=== PATIENT | female | born 1940 | race Caucasian/White ===

== ENCOUNTER → 2016-02-16 | Outpatient (CLI) | payer OTHER, MEDICARE ==
--- NOTE | 2016-02-16 17:20 | DX ---
Cervical spine, 2 views History: M47.12, spondylosis, M48.02 spinal stenosis, M47.812, spondylosis. Surgery. Findings: Anterior cervical fusion plate and screws at the C4, C6 and C7 levels with corpectomy of C 5. Posterior transpedicle screws and rods from every level from C3 through C7. Hardware appears intac t. C3-C4 level demonstrates 2 mm anterolisthesis. Impression: 1. Anterior fusion from C4 through C7 and posterior fusion from C3 through C7 with hardware intact. 2. C3-C4 anterolisthesis 2 mm.
== END ==
LOC: FIMAGING 14:11
PROVIDERS: ATTEND Physician Assistant
DX: M43.12 Spondylolisthesis, cervical region (principal); Z98.1 Arthrodesis status

== ENCOUNTER 2016-02-18 05:51 | Inpatient (IN) | payer OTHER, MEDICARE ==
[2016-02-18] MEDS ORDERED: CHLORHEXIDINE GLUC HIBICLENS 118 ML BTL TP ONE (06:30)
[2016-02-18] MEDS ORDERED: morphINE SR 15 MG TAB PO ONE (06:30)
[2016-02-18] MEDS ORDERED: THROMBIN (RECOMBINANT) 5,000 UNIT VIAL TP ONE (06:38)
[2016-02-18] MEDS ORDERED: BUPIVACAINE 0.25% 30 ML SDV ONE (06:38)
[2016-02-18] MEDS ORDERED: AVITENE POWDER 1 GM JAR TP ONE (06:38)
[2016-02-18] MEDS ORDERED: BACITRACIN 50,000 UNITS/10 ML SYR IRR ONE (06:39)
[2016-02-18] MEDS ORDERED: BUPIVACAINE/EPI 0.25% 30 ML SDV ONE (06:39)
[2016-02-18] MEDS ORDERED: LIDOCAINE 1% 5 ML SDV ONE (06:43)
[2016-02-18] MEDS ORDERED: ceFAZolin 2 GM/DEXTROSE 100 ML IV ONE (07:00)
[2016-02-18 07:13] LABS: % IMMATURE GRANULYOCYTES 0.3 % (0.0-1.1); ABSOLUTE IMMATURE GRANULOCYTES 0.02 10^3/uL (0.00-0.10); ADD DIFF? NO; ADD MORPH? NO; ADD SCAN? NO; ATYPICAL LYMPHOCYTE FLAG 10 (0-99); FRAGMENT RBC FLAG 0 (0-99); HEMATOCRIT 38.5 % (38.0-47.0); HEMOGLOBIN 13.3 g/dL (12.6-16.3); LEFT SHIFT FLG 0 (0-99); LIPEMIA HEMOLYSIS FLAG 90 (0-99); MEAN CELL HEMOGLOBIN 34.7 pg (27.9-34.1); MEAN CELL HEMOGLOBIN CONCENTR. 34.5 g/dL (32.4-36.7); MEAN CELL VOLUME 100.5 fL (81.5-99.8); MEAN PLATELET VOLUME 8.9 fL (8.7-11.7); PLATELET CLUMPS FLAG 0 (0-99); PLATELET COUNT 249 10^3/uL (150-400); RED BLOOD CELL COUNT 3.83 10^6/uL (4.18-5.33); RED CELL DISTRIBUTION WIDTH 12.2 % (11.5-15.2)
[2016-02-18] MEDS ORDERED: fentaNYL 100 MCG/2 ML INJ ONE (07:15)
[2016-02-18] MEDS ORDERED: REMIFENTANIL HCL 1 MG VIAL ONE (07:15)
[2016-02-18] MEDS ORDERED: PROPOFOL/EMULSION 500 MG/50 ML BOTTLE IV ONE (07:16)
[2016-02-18] MEDS ORDERED: SUCCINYLCHOLINE CHLORIDE*ANESTHESIA ONLY*200 MG/10 ML SYR IVP ONE (07:19)
[2016-02-18] MEDS ORDERED: LIDOCAINE 2% 100 MG/5 ML SYR IVP ONE (07:20)
[2016-02-18] MEDS ORDERED: LR 1,000 ML IV ONE (07:22)
[2016-02-18] MEDS ORDERED: LIDOCAINE 1% 5 ML SDV ID PRN (07:22)
[2016-02-18] MEDS ORDERED: METOCLOPRAMIDE 10 MG/2 ML VIAL IVP PRN (09:46)
[2016-02-18] MEDS ORDERED: ACETAMINOPHEN 325 MG TAB PO PRN (09:46)
[2016-02-18] MEDS ORDERED: PROMETHAZINE HCL 25 MG TAB PO PRN (09:46)
[2016-02-18] MEDS ORDERED: ONDANSETRON DISINTEGRATING 4 MG TAB PO PRN (09:46)
[2016-02-18] MEDS ORDERED: ONDANSETRON 4 MG/2 ML VIAL IVP PRN (09:46)
[2016-02-18] MEDS ORDERED: NON-FORMULARY NEW DRUG (Omeprazole [Prilosec 20 Mg] 20 MG) PO PRN (09:57)
[2016-02-18] MEDS ORDERED: BACLOFEN 10 MG TAB PO PRN (09:57)
[2016-02-18] MEDS ORDERED: NS W/ 20 KCl/L 1,000 ML IV SCH (10:00)
[2016-02-18] MEDS ORDERED: PANTOPRAZOLE SODIUM 40 MG TAB PO PRN (10:15)
--- NOTE | 2016-02-18 10:19 | NEUSURGPN ---
Assessment/Plan: 75 yo female planned for C1/2,2/3 PSF. Aborted due to O-arm technical failure. -Rescheduled for tomorrow morning -NPO after midnight-can have regular diet now -Home meds reconciled -Activity as tolerated -Patient seen in PACU by Dr. Menjivar as well Subjective: Patient doing ok, no complaints currently. No nausea, vomiting, pain. Objective: NAD, VSS Following commands, conversing appropriately PERRL, EOMI CN II-XII grossly intact BUE/BLE 06/17= - Physician Discussed Patient with : Otto Patient Seen by : Otto Neurosurgery Physical Exam - Vitals, I&O, Labs I and O 02/17/16 02/18/16 02/19/16 05:59 05:59 05:59 Weight 57.153 kg Laboratory Results 02/18/16 07:10 ICD10 Worksheet Patient Problems: Problems Problem Status Diagnosed Cervical stenosis of spinal canal Acute - ICD10 Problem Qualifiers (1) Cervical stenosis of spinal canal
[2016-02-18] MEDS: PARoxetine HCL 10 MG TAB PO SCH (11:30)
[2016-02-18] MEDS: DONEPEZIL HCL 5 MG TAB PO SCH (11:30)
--- NOTE | 2016-02-18 13:18 | GOP ---
[f rep st] OPERATIVE REPORT DATE OF OPERATION: 02/18/2016 SURGEON: Hai Menjivar MD NEUROSURGEON: Hai Menjivar MD DRY ICE MAKER: CATALINA Suggs PREOPERATIVE DIAGNOSIS: Cervical spondylosis with severe cervical stenosis, C1-2 instability, neck p ain. POSTOPERATIVE DIAGNOSIS: Cervical spondylosis with severe cervical stenosis, C1-2 instability, neck pain. PROCEDURE PERFORMED: Posterior cervical decompression and fusion, C1 to C3 but really going down to C7. FINDINGS: ESTIMATED BLOOD LOSS: None. DESCRIPTION OF PROCEDURE: Procedure was aborted due to simultaneous failure of both O-arm 2.0 and O- arm 1.0. We had tech support on the phone for over an hour trying to resolve the issue, and we simpl y could not achieve this. The patient had been placed in cranial pins and flipped prone on the Jacks on table. Motor and somatosensory evoked potentials were tested, and these were stable, but the surg malia was never fully initiated. She had been positioned, but the skin was not incised, and she was ne sriram draped for surgery. Procedure aborted due to equipment failure. The patient was reversed from a nesthesia, transferred back to the recovery room, and the surgery was rescheduled. /[id number]/MODL
[2016-02-18] MEDS: Memantine Hcl [Namenda Xr] 28 MG PO SCH (14:06)
[2016-02-18] MEDS ORDERED: DIVALPROEX NA 125 MG TAB PO PRN (17:00)
[2016-02-18] MEDS: LISINOPRIL 20 MG TAB PO SCH (18:51)
[2016-02-18] MEDS: HYDROCODONE/APAP 5/325 TAB PO PRN (21:43)
[2016-02-19] MEDS: HYDROCODONE/APAP 5/325 TAB PO PRN (04:42)
[2016-02-19] MEDS ORDERED: LR 1,000 ML IV ONE (06:38)
[2016-02-19] MEDS ORDERED: THROMBIN (RECOMBINANT) 5,000 UNIT VIAL TP ONE (06:46)
[2016-02-19] MEDS ORDERED: THROMBIN (RECOMBINANT) 20,000 UNIT VIAL TP ONE (06:46)
[2016-02-19] MEDS ORDERED: BUPIVACAINE 0.25% 30 ML SDV ONE (06:46)
[2016-02-19] MEDS ORDERED: BUPIVACAINE/EPI 0.25% 30 ML SDV ONE ×2 (06:47→07:26)
[2016-02-19] MEDS ORDERED: AVITENE POWDER 1 GM JAR TP ONE (06:47)
[2016-02-19] MEDS ORDERED: BACITRACIN 50,000 UNITS/10 ML SYR IRR ONE (06:49)
[2016-02-19] MEDS ORDERED: ceFAZolin 2 GM/DEXTROSE 100 ML IV ONE (06:50)
[2016-02-19] MEDS ORDERED: fentaNYL 100 MCG/2 ML INJ ONE ×3 (07:19→13:03)
[2016-02-19] MEDS ORDERED: PROPOFOL 200 MG/20 ML VIAL ONE (07:19)
[2016-02-19] MEDS ORDERED: REMIFENTANIL HCL 1 MG VIAL ONE (07:19)
[2016-02-19] MEDS ORDERED: PROPOFOL/EMULSION 500 MG/50 ML BOTTLE IV ONE ×2 (07:20→10:15)
[2016-02-19] MEDS ORDERED: DIAZEPAM 10 MG/2 ML SYR IVP PRN (07:22)
[2016-02-19] MEDS ORDERED: MAGNESIUM HYDROXIDE 30 ML UDCUP PO PRN (07:22)
[2016-02-19] MEDS ORDERED: LACTULOSE 20 GM/30 ML UDCUP PO PRN (07:22)
[2016-02-19] MEDS ORDERED: BISACODYL 10 MG SUPP PR PRN (07:22)
[2016-02-19] MEDS ORDERED: POLYETHYLENE GLYCOL 3350 17 GM PKT PO PRN (07:22)
[2016-02-19] MEDS ORDERED: diphenhydrAMINE 25 MG CAP PO PRN (07:22)
[2016-02-19] MEDS ORDERED: morphINE PCA 30 MG/30 ML PCA IV PRN (07:22)
[2016-02-19] MEDS ORDERED: NALOXONE HCL 0.4 MG/ML INJ IVP PRN (07:22)
[2016-02-19] MEDS ORDERED: TEMAZEPAM 15 MG CAP PO PRN (07:22)
[2016-02-19] MEDS ORDERED: [UNRECOGNIZED DRUG - SUPPLY] TP ONE (07:30)
[2016-02-19] MEDS ORDERED: DEXAMETHASONE 4 MG/ML VIAL ONE ×2 (08:17)
[2016-02-19] MEDS ORDERED: LIDOCAINE 2% 5 ML SDV ONE (08:17)
[2016-02-19] MEDS ORDERED: ROCURONIUM 50 MG/5 ML VIAL ONE (08:17)
[2016-02-19] MEDS ORDERED: PHENYLEPHRINE HCL 100 MCG/ML SYR ONE (09:45)
[2016-02-19] MEDS ORDERED: HYDROmorphONE/DILAUDID 2 MG/ML SYR ONE (10:11)
[2016-02-19] MEDS ORDERED: ONDANSETRON 4 MG/2 ML VIAL ONE (12:10)
--- NOTE | 2016-02-19 13:22 | SOAPPROG ---
SOAP Progress Note Assessment/Plan: Post Op Visit: S: Awake and alert. NAD. Pt with expected neck pain O: AFVSS/PERRLA/EOMI no droop CN 2-12 grossly intact +lt touch 5/5 BUE/BLE = CDI NICKO in place A/P: 75 yo female that is s/p removal of cervical hardware with new posterior cervical fusion C1-C5 -collar at all times -take medications as directed -pt seen by Dr Menjivar as well 02/19/16 13:18 Objective: Vital Signs Temp Pulse Resp BP Pulse Ox 36.8 C 78 16 140/81 H 96 02/19/16 05:07 02/19/16 05:07 02/19/16 05:07 02/19/16 05:07 02/19/16 05:07 Laboratory Results 02/18/16 07:10 02/18/16 02/19/16 02/20/16 05:59 05:59 05:59 Intake Total 1687 Output Total 1375 Balance 312 ICD10 Worksheet Patient Problems: Problems Problem Status Diagnosed Arthrodesis status Acute Cervical stenosis of spinal canal Acute Cervicalgia Acute - ICD10 Problem Qualifiers (1) Arthrodesis status (2) Cervicalgia
--- NOTE | 2016-02-19 15:02 | GOP ---
[f rep st] OPERATIVE REPORT DATE OF OPERATION: 02/19/2016 SURGEON: Hai Menjivar MD MEAT SUPERVISOR: Kali Garcia PA-C PREOPERATIVE DIAGNOSIS: 1. 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 2. Severe axial neck pain and radiating head pain. 3. Cervical stenosis C1-C2. 4. Prior cervical fusion C3-C7. POSTOPERATIVE DIAGNOSIS: 1. 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 2. Severe axial neck pain and radiating head pain. 3. Cervical stenosis C1-C2. 4. Prior cervical fusion C3-C7. PROCEDURE PERFORMED: Removal of posterior cervical segmental hardware C3, C4, C5, C7, posterior C1-C 2 arthrodesis with fusion of C1 to C2 and fusion the C1-C2 joint, posterior segmental instrumentation C1, C2, C4, C5, spinal stereotaxy, same-incision bone graft harvest, C1-C2 laminectomy without facet ectomy. FINDINGS: ESTIMATED BLOOD LOSS: 250 cc. DESCRIPTION OF PROCEDURE: The patient was taken to the operating room, placed in supine position. G eneral anesthesia was begun. She was placed in pins and flipped prone onto the Jose table. Care was taken to pad all points of contact. The back of her neck was sterilely prepped and draped in usu al fashion. The O arm was introduced sterilely to the field. We opened the previous incision and di ssected down to the spine and the occipital bone with the plasma blade. We exposed the prior hardwar e from C3 to C7. There was significant bony overgrowth and this was removed. We removed all the cap screws, then removed the crosslink, cut the rods on each side with a carbide bit in the mid portion of the construct, and pulled out all 4 rods. We then removed all of the screws bilaterally and expl ored the fusion. There did appear to be solid bony union. We decorticated the posterolateral bone f or arthrodesis at C3, C4, C5, C6 and C7 to create a stronger fusion construct that would tie into C1. There was a solid, bony union. There was also bony union between C2 and C3. We then harvested the rostral lamina of C2 and the lamina of C1 for autologous grafting purposes, decompressed the thecal sac, and performed a laminectomy of C1 and C2. I got a nice decompression at those levels. We follo wed the dura out laterally along the C2 root and we dissected around the C2 root. There was a large synovial cyst on each side coming out of the C1-C2 joint compressing the C2 root, and this was resect ed. We then tied off the C2 root proximal to the ganglion bilaterally, left and right, and then divi ded the C2 root so that we could see the lateral mass portion of the C1 ring. We then attached the [facility] reference frame to C7 and then performed an O arm spin, and using frameless Stealth stereotaxy , we placed pedicle screws bilaterally at C1 into the C1 lateral masses. They were bicortical and we went millimeter and millimeter, drilling 2.4 mm holes with the drill guide and drill bit. These scr ews were directed medially and we drilled to the ventral cortex of C1 which was a 30 mm screw on the left and a 32 mm on the right. We then did likewise at C2, where we drilled down through the C2 pedi peyton, and on the left side we chose a 30 mm screw and on the right a 20 mm screw. We had less room to spare on the right relative to the vertebral artery, and we used a much shorter screw, but the C2 pe dicle was solid cortical bone and it took a long time actually to drill through it. We then went bel ow and skipped the C3 level, and put lateral mass screws at C4 and C5 in the same holes that had been used previously. We performed an O arm spin and all the screws were in acceptable position and the C1 screws both bicortical. We decorticated the C1-C2 facet joint itself, working below the foramen, and we decorticated the remaining ring of C1 laterally, staying below the ring of C1, away from the v ertebral artery. A nice decortication was performed. We took 60 mm rods, placed them down over the screws, and reduced C1 onto the rods, pulling it posteriorly into a better position. This also relax ed the dura and motor and somatosensory-evoked potentials were stable throughout. We placed cap scre ws down over the tulips and connected the yessenia into the tulips and torqued these to Archetypes specificInfo ion. We then placed bony autograft posterolaterally bilaterally from C1 all the way down to C5 to co nclude our arthrodesis along these levels, placed a subfascial drain, and then closed the incision in multiple layers using Vicryl sutures. The very rostral portion incision was closed with a running P rolene suture, as it behaved more like scalp rather than skin on the back. We were happy with this. We placed a sterile dressing, put the patient in a collar, put her back on a hospital bed, and then removed the [facility] head frame. COMPLICATIONS: None. INSTRUMENTATION: [employer] Vertex instrumentation. We used small bone morphogenic protein and we us ed autologous bone graft. INDICATIONS FOR THE PROCEDURE: The patient is a 75-year-old with a prior cervical fusion, anteriorly -posteriorly from C3 to C7 who appeared to have bony union on her studies, who came in with terrible increasing neck pain that was incapacitating pain. She also suffered from dementia and it was becomi ng more difficult because of her dementia for her to remain independent. 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 The risk of vertebral artery injury, , hematoma, screw and hardware malposition, malfunction, ne rve injury, spinal fluid leak, continued symptoms, continued pain, pseudoarthrosis, and the possible need for additional surgery, was discussed. She and her accepted these risks and wanted to p martir. /[id number]/MODL
--- NOTE | 2016-02-19 15:12 | DX ---
Fluoroscopy Greater Than an Hour Indication: Multilevel fusion. Fluoroscopy Time: 3.5 seconds. Dose 2.15 mGy. Two 3D images were obtained for a DLP of 397.1. Findings: On the two spot fluoroscopic images, there is fusion from C1 through C5 in an intubated pa tient. Impression: Fluoroscopy provided for posterior cervical fusion and hardware. Please see Dr. Menjivar's report for full surgical detail.
[2016-02-19] MEDS: HYDROCODONE/APAP 10/325 TAB PO PRN ×2 (15:18→20:13)
[2016-02-19] MEDS: DONEPEZIL HCL 5 MG TAB PO SCH (15:18)
[2016-02-19] MEDS: ESTROGENS CONJUGATED 0.9 MG PO SCH (15:18)
[2016-02-19] MEDS: Memantine Hcl [Namenda Xr] 28 MG PO SCH (15:19)
[2016-02-19] MEDS: FAMOTIDINE 20 MG/NACL 50 ML IV SCH ×2 (15:27→20:15)
[2016-02-19] MEDS: PARoxetine HCL 10 MG TAB PO SCH (15:29)
[2016-02-19] MEDS: SENNOSIDES/DOCUSATE SODIUM TAB PO SCH ×2 (15:29→20:14)
[2016-02-19] MEDS: LISINOPRIL 20 MG TAB PO SCH (18:35)
[2016-02-19] MEDS: METHOCARBAMOL 750 MG TAB PO PRN (20:14)
[2016-02-20] MEDS: HYDROCODONE/APAP 10/325 TAB PO PRN ×3 (01:05→08:36)
[2016-02-20 04:29] LABS: % IMMATURE GRANULYOCYTES 0.2 % (0.0-1.1); ABSOLUTE IMMATURE GRANULOCYTES 0.02 10^3/uL (0.00-0.10); ADD DIFF? NO; ADD MORPH? NO; ADD SCAN? NO; ATYPICAL LYMPHOCYTE FLAG 0 (0-99); FRAGMENT RBC FLAG 0 (0-99); HEMATOCRIT 31.6 % (38.0-47.0); HEMOGLOBIN 10.2 g/dL (12.6-16.3); LEFT SHIFT FLG 0 (0-99); LIPEMIA HEMOLYSIS FLAG 80 (0-99); MEAN CELL HEMOGLOBIN 33.4 pg (27.9-34.1); MEAN CELL HEMOGLOBIN CONCENTR. 32.3 g/dL (32.4-36.7); MEAN CELL VOLUME 103.6 fL (81.5-99.8); MEAN PLATELET VOLUME 9.1 fL (8.7-11.7); PLATELET CLUMPS FLAG 0 (0-99); PLATELET COUNT 193 10^3/uL (150-400); RED BLOOD CELL COUNT 3.05 10^6/uL (4.18-5.33); RED CELL DISTRIBUTION WIDTH 12.4 % (11.5-15.2)
[2016-02-20 04:47] LABS: ANION GAP 4 mEq/L (8-16); CALCIUM 8.3 mg/dL (8.5-10.4); CARBON DIOXIDE 29 mEq/l (22-31); CHLORIDE 104 mEq/L (97-110); CREATININE 0.8 mg/dL (0.6-1.0); GLOMERULAR FILTRATION RATE > 60; GLUCOSE 93 mg/dL (70-100); POTASSIUM 4.5 mEq/L (3.5-5.2); SODIUM 137 mEq/L (134-144)
[2016-02-20] MEDS: HYDROmorphONE/DILAUDID 2 MG TAB PO PRN ×4 (05:40→20:37)
[2016-02-20] MEDS: FAMOTIDINE 20 MG/NACL 50 ML IV SCH (08:34)
--- NOTE | 2016-02-20 08:35 | NEUSURGPN ---
Date of Surgery: 02/19/16 Post Op Day: 1 Assessment/Plan: Assessment: 75 yo female that is s/p removal of cervical hardware with new posterior cervical fusion C1-C5 POD #1 Plan: -s/p cervical fusion: Pt with expected neck pain, arms feel fine. Doing well with pain control -collar at all times-fitting well and no skin issues -pending post op xrays today -PT/OT-CPM -NICKO ok to be removed today per Dr Menjivar -plan for stay in the hospital for 1-2 more days for PT and pain control -take medications as directed -d/w Dr Menjivar -call with any questions or concerns -pt understands and agrees 02/19/16 13:18 Subjective: Awake and alert. NAD. No cuevas/chest/abd or gu complaints. No f/c/n/v/d. Objective: AFVSS/PERRLA/EOMI no droop CN 2-12 grossly intact +lt touch 5/5 BUE/BLE = CDI NICKO in place Neuro Check Frequency: per routine Urinary Catheter in Place: No Catheter Insertion Date: 02/18/16 - Physician Discussed Patient with : Otto Neurosurgery Physical Exam - Vitals, I&O, Labs I and O 02/19/16 02/20/16 02/21/16 05:59 05:59 05:59 Intake Total 1687 3216 Output Total 1375 1666 Balance 312 1550 Intake: Oral (ml) 600 1350 IV Intake (ml) 700 1000 IV Infused (ml) 387 866 NS W/ 20 KCl/L 1,000 ml @ 387 661 75 mls/hr IV CONT [facility] Rx #:[id number] ceFAZolin 1 GM/DEXTROSE 105 50 ml @ 200 mls/hr IV Q8HRS [facility] Rx#:[id number] Famotidine 20 mg/NaCl 50 100 ml @ 200 mls/hr IV Q12HRS [facility] Rx#:[id number] Output: Urine (ml) 1375 1201 Catheter 1375 400 Toilet 801 Estimated Blood Loss (ml) 0 200 Wound Drainage (ml) 195 Posterior Jose Dawson 195 Wound Drainage (ml) 70 Posterior Neck Jose 70 Dawson Other: Intake Quantity Yes Yes Sufficient Number of Stools Toilet 1 Vital Signs Temp Pulse Resp BP Pulse Ox 36.4 C 76 14 137/83 H 90 L 02/20/16 07:48 02/20/16 07:48 02/20/16 07:48 02/20/16 07:48 02/20/16 07:48 Laboratory Results 02/20/16 04:25 02/20/16 04:25 ICD10 Worksheet Patient Problems: Problems Problem Status Diagnosed Arthrodesis status Acute Cervical stenosis of spinal canal Acute Cervicalgia Acute - ICD10 Problem Qualifiers (1) Arthrodesis status (2) Cervicalgia
[2016-02-20] MEDS: SENNOSIDES/DOCUSATE SODIUM TAB PO SCH ×2 (08:37→20:29)
--- NOTE | 2016-02-20 10:51 | DX ---
Cervical Spine, Two Views February 20, 2016 Indication: Postoperative. Evaluate alignment. Technique: Upright AP and lateral views. Comparison: Two-view cervical spine dated February 16, 2016. Findings: The posterior fusion construct has been revised since 4 days prior. The posterior construc t now consists of dual posterior rods and transpedicle screws in C1, C2, C4, and C5. The screws have been removed from C6 and C7. The ACDF extending from C4 to C7 consists of an anterior plate and trans vertebral screws in C4, C6, and C7 are unchanged and well seated. Prevertebral soft tissues are withi n normal limits. A surgical drain is present posteriorly. A cervical collar obscures minimal detail. Impression: 1. Revised posterior fusion construct now extends from C1 to C5. 2. ACDF extending from C4 to C7 remains well seated.
[2016-02-20] MEDS: DONEPEZIL HCL 5 MG TAB PO SCH (12:22)
[2016-02-20] MEDS: Memantine Hcl [Namenda Xr] 28 MG PO SCH (12:23)
[2016-02-20] MEDS: PARoxetine HCL 10 MG TAB PO SCH (12:24)
[2016-02-20] MEDS: DIAZEPAM 5 MG TAB PO PRN ×2 (12:24→17:09)
[2016-02-20] MEDS: LISINOPRIL 20 MG TAB PO SCH (18:14)
[2016-02-20] MEDS: FAMOTIDINE 20 MG TAB PO SCH (20:29)
[2016-02-21] MEDS: HYDROmorphONE/DILAUDID 2 MG TAB PO PRN ×3 (04:29→19:36)
[2016-02-21] MEDS: METHOCARBAMOL 750 MG TAB PO PRN ×2 (04:29→13:52)
[2016-02-21] MEDS: FAMOTIDINE 20 MG TAB PO SCH ×2 (07:40→19:38)
[2016-02-21] MEDS: SENNOSIDES/DOCUSATE SODIUM TAB PO SCH ×2 (07:40→19:36)
[2016-02-21] MEDS: ESTROGENS CONJUGATED 0.9 MG PO SCH (07:42)
[2016-02-21] MEDS: HYDROCODONE/APAP 10/325 TAB PO PRN ×4 (07:46→23:55)
[2016-02-21] MEDS: DIAZEPAM 5 MG TAB PO PRN ×2 (07:48→19:37)
--- NOTE | 2016-02-21 08:49 | NEUSURGPN ---
Date of Surgery: 02/19/16 Post Op Day: 2 Assessment/Plan: Assessment: 75 yo female that is s/p removal of cervical hardware with new posterior cervical fusion C1-C5 POD #2 Plan: -s/p cervical fusion: Pt with expected neck pain, arms feel fine. Doing well with pain control after a painful night last night -collar at all times-fitting well and no skin issues -post op xrays look good -PT/OT-CPM -NICKO removed and dressing changed -plan for stay in the hospital for 1 more day for PT and pain control with plan for dc tomorrow -take medications as directed -d/w Dr Menjivar -call with any questions or concerns -pt understands and agrees 02/19/16 13:18 Subjective: Awake and alert. NAD. Eating/drinking and voiding. No f/c/n/v/d. No cuevas/cp/sob /abd or gu complaints. Objective: AFVSS/PERRLA/EOMI no droop CN 2-12 grossly intact +lt touch 5/5 BUE/BLE = CDI NICKO site looks fine Neuro Check Frequency: per routine Urinary Catheter in Place: No Catheter Insertion Date: 02/18/16 - Physician Discussed Patient with : Otto Neurosurgery Physical Exam - Vitals, I&O, Labs I and O 02/20/16 02/21/16 02/22/16 05:59 05:59 05:59 Intake Total 3216 650 Output Total 1666 1080 30 Balance 1550 -430 -30 Intake: Oral (ml) 1350 600 IV Intake (ml) 1000 IV Infused (ml) 866 50 NS W/ 20 KCl/L 1,000 ml @ 661 75 mls/hr IV CONT [facility] Rx #:[id number] ceFAZolin 1 GM/DEXTROSE 105 50 ml @ 200 mls/hr IV Q8HRS [facility] Rx#:[id number] Famotidine 20 mg/NaCl 50 100 50 ml @ 200 mls/hr IV Q12HRS [facility] Rx#:[id number] Output: Urine (ml) 1201 900 Catheter 400 Toilet 801 900 Estimated Blood Loss (ml) 200 Wound Drainage (ml) 195 180 30 Posterior Jose Dawson 195 180 30 Wound Drainage (ml) 70 Posterior Neck Jose 70 Dawson Other: Intake Quantity Yes Yes Sufficient Number of Voids Toilet 1 Vital Signs Temp Pulse Resp BP Pulse Ox 37.2 C 90 16 137/94 H 96 02/21/16 04:00 02/21/16 04:00 02/21/16 04:00 02/21/16 04:00 02/21/16 04:00 Laboratory Results 02/20/16 04:25 02/20/16 04:25 ICD10 Worksheet Patient Problems: Problems Problem Status Diagnosed Arthrodesis status Acute Cervical stenosis of spinal canal Acute Cervicalgia Acute - ICD10 Problem Qualifiers (1) Arthrodesis status (2) Cervicalgia
[2016-02-21] MEDS: PARoxetine HCL 10 MG TAB PO SCH (13:32)
[2016-02-21] MEDS: DONEPEZIL HCL 5 MG TAB PO SCH (13:33)
[2016-02-21] MEDS: Memantine Hcl [Namenda Xr] 28 MG PO SCH (13:35)
[2016-02-21] MEDS: LISINOPRIL 20 MG TAB PO SCH (17:36)
[2016-02-22] MEDS: HYDROCODONE/APAP 10/325 TAB PO PRN ×2 (06:45→14:18)
--- NOTE | 2016-02-22 08:36 | NEUSURGPN ---
Date of Surgery: 02/19/16 Post Op Day: 3 Assessment/Plan: Assessment: 75 yo female that is s/p removal of cervical hardware with new posterior cervical fusion C1-C5 POD #3 Plan: -s/p cervical fusion: Pt with expected neck pain, arms feel fine. Doing well with pain control after a painful night a few nights ago -collar at all times-fitting well and no skin issues -pt is compulsive and cannot go home as she gets disoriented at night and removes her collar. She will need 24 hr nursing supervision for dementia and non compliance, this is needed for patient safety -post op xrays look good -PT/OT-CPM -NICKO removed and dressing changed yesterday -plan for stay in the hospital until able to find an inpatient facility for her -take medications as directed -d/w Dr Menjivar -call with any questions or concerns -pt understands and agrees 02/19/16 13:18 Subjective: Awake and alert. No new complaints or issues Objective: AFVSS/PERRLA/EOMI no droop CN 2-12 grossly intact +lt touch 5/5 BUE/BLE = CDI NICKO site looks fine Neuro Check Frequency: per routine Urinary Catheter in Place: No Catheter Insertion Date: 02/18/16 - Physician Discussed Patient with : Otto Patient Seen by : Otto Neurosurgery Physical Exam - Vitals, I&O, Labs I and O 02/21/16 02/22/16 02/23/16 05:59 05:59 05:59 Intake Total 650 200 Output Total 1080 832 Balance -430 -632 Intake: Oral (ml) 600 200 IV Infused (ml) 50 Famotidine 20 mg/NaCl 50 50 ml @ 200 mls/hr IV Q12HRS [facility] Rx#:[id number] Output: Urine (ml) 900 802 Toilet 900 802 Wound Drainage (ml) 180 30 Posterior Jose Dawson 180 30 Other: Intake Quantity Yes Yes Sufficient Number of Voids Toilet 1 1 Number of Stools Toilet 1 Vital Signs Temp Pulse Resp BP Pulse Ox 36.8 C 89 15 124/75 H 93 02/22/16 08:00 02/22/16 08:00 02/22/16 08:00 02/22/16 08:00 02/22/16 08:00 Laboratory Results 02/20/16 04:25 02/20/16 04:25 ICD10 Worksheet Patient Problems: Problems Problem Status Diagnosed Arthrodesis status Acute Cervical stenosis of spinal canal Acute Cervicalgia Acute - ICD10 Problem Qualifiers (1) Arthrodesis status (2) Cervicalgia
[2016-02-22] MEDS: SENNOSIDES/DOCUSATE SODIUM TAB PO SCH (08:40)
[2016-02-22] MEDS: FAMOTIDINE 20 MG TAB PO SCH (08:40)
--- NOTE | 2016-02-22 08:44 | PDIAF ---
- Diagnosis Diagnosis: s/p posterior cervical fusion Code Status: Full Code - Medication Management Discharge Medications: Medications to Continue on Transfer Donepezil HCl [Aricept 5 MG (*)] 10 mg PO DAILY@12 09/17/10 [Last Taken 02/17/16 ] Lisinopril [Zestril 20 mg (*)] 20 mg PO DAILY@1830 09/17/10 [Last Taken 02/17/16 ] Memantine HCl [Namenda Xr] 28 mg PO DAILY@12 09/17/10 [Last Taken 02/17/16] PARoxetine HCL [Paxil 10mg (*)] 10 mg PO DAILY@12 09/17/10 [Last Taken 02/18/16 05:30] clonIDINE [Catapres (*)] 0.1 mg PO HS 09/17/10 [Last Taken 02/17/16] Baclofen [Baclofen 10 mg (*)] 10 mg PO DAILY PRN 02/15/16 [Last Taken 02/15/16] C/E/Zn/Cu/OM3/DHA/EPA/LUT/ZEAX [Preservision Areds 2 Softgel] 1 each PO DAILY [Last Taken 02/17/16] Divalproex Sodium [Depakote] 125 - 250 mg PO DAILY@17 PRN 02/15/16 [Last Taken 02/17/16] Estrogens, Conjugated [PREMARIN] 0.9 mg PO Q2D 02/15/16 [Last Taken 02/17/16] Fexofenadine HCl [Myrtle Allergy] 60 mg PO DAILY 02/15/16 [Last Taken 02/17/16] Omeprazole [Prilosec 20 mg] 20 mg PO BID PRN 02/15/16 [Last Taken Unknown] Enoxaparin [Lovenox 40 MG (*)] 40 mg SC DAILY #7 syr 02/22/16 [Last Taken Unknown] HYDROcodone/APAP 10/325 [Breeding 10/325 (*)] 1 tab PO Q6HRS PRN #60 tab 02/22/16 [ Last Taken Unknown] Methocarbamol [Robaxin 750 mg (*)] 750 mg PO QID PRN #60 tab 02/22/16 [Last Taken Unknown] Sennosides/Docusate Sodium [Senokot-S] 1 - 2 tab PO BID #30 tab 02/22/16 [Last Taken Unknown] [employer] Antibiotics: none Discharge Medications: Refer to the Discharge Home Medication list for PRN reason. - Orders Services needed: Registered Nurse, Certified Wire Weaver, Master Farmhand , Physical Therapy, Occupational Therapy Oxygen: to keep O2 sat above 90% Diet Recommendation: no restrictions on diet Diet Texture: Regular Texture Diet, Thin Liquids, Meds Whole w/Liquids Tube feeding: n/a Hubert Stockings Discontinue Date: wear until walking well Wound Care Instructions: leave steristrips on until about 14 days out from surgery - Follow Up Care Current Providers and Referrals: OUT OF STATE,. [Primary Care Provider] - Lamar Menjivar MD [Medical Doctor] - (follow up in 2-3 weeks)
[2016-02-22] MEDS ORDERED: ENOXAPARIN 40 MG/0.4 ML SYR SC SCH (09:00)
[2016-02-22 12:07] VITALS: O2SAT 96
[2016-02-22] MEDS: METHOCARBAMOL 750 MG TAB PO PRN (12:08)
[2016-02-22] MEDS: PARoxetine HCL 10 MG TAB PO SCH (12:08)
[2016-02-22] MEDS: DONEPEZIL HCL 5 MG TAB PO SCH (12:08)
[2016-02-22] MEDS: Memantine Hcl [Namenda Xr] 28 MG PO SCH (12:09)
[2016-02-22 16:43] VITALS: BP 158/104; PULSE 104; RESP 16; TEMP 98.7
[2016-02-22] MEDS: DIAZEPAM 5 MG TAB PO PRN (16:46)
== END 2016-02-22 17:36 | DRG 473 ==
LOC: F3N 05:51
PROVIDERS: ADMIT Neurological Surgery; ATTEND Neurological Surgery
PROC: 0RP40AZ Removal of Interbody Fusion Device from Cervicothoracic Vertebral Joint, Open Approach (ICD-10-PCS; principal; 2016-02-19 07:30)
PROC: 0RG10AJ Fusion of Cervical Vertebral Joint with Interbody Fusion Device, Posterior Approach, Anterior Column, Open Approach (ICD-10-PCS; principal; 2016-02-19 07:30)
PROC: 4A1004G Monitoring of Central Nervous Electrical Activity, Intraoperative, Open Approach (ICD-10-PCS; principal; 2016-02-19 07:30)
PROC: 01N10ZZ Release Cervical Nerve, Open Approach (ICD-10-PCS; principal; 2016-02-19 07:30)
PROC: 0RB10ZZ Excision of Cervical Vertebral Joint, Open Approach (ICD-10-PCS; principal; 2016-02-19 07:30)
DX: M43.12 Spondylolisthesis, cervical region (principal); M47.812 Spondylosis without myelopathy or radiculopathy, cervical region; I10 Essential (primary) hypertension; K21.9 Gastro-esophageal reflux disease without esophagitis; F03.90 Unspecified dementia, unspecified severity, without behavioral disturbance, psychotic disturbance, mood disturbance, and anxiety
CPT/HCPCS: 92610-GN; 97116-GP; 97161-GP; 97165-GO; 97530-GP; C1713; G8978-GP-CJ; G8979-GP-CI; G8987-GO-CI; G8988-GO-CI; G8996-GN-CH; G8997-GN-CH; G8998-GN-CH; J0330; J0690; J1100; J1170; J1650; J2001; J2370; J2405; J2704; J3010